=== PATIENT | male | born 1990 | race African-American/Black ===

== ENCOUNTER 2024-05-25 08:55 | Outpatient (REF) | payer MEDICAID, SELFPAY ==
--- NOTE | ~2024-05-25 | XR_ITS ---
EXAMINATION: XR CHEST CLINICAL INFORMATION: COUGH COMPARISON: None available. TECHNIQUE: 2 views of the chest were obtained. FINDINGS: No consolidation, pleural effusion or pneumothorax. No hyperinflation. Cardiomediastinal silhouette is normal in size. Osseous structures are intact. XR/XR chest 2V IMPRESSION: No acute airspace disease. Normal x-ray. Electronically signed by: Amaury Cabral MD 05/25/2024 11:01 AM [facility] [place]
--- NOTE | ~2024-05-25 | XR_ITS ---
EXAMINATION: XR LUMBOSACRAL SPINE CLINICAL INFORMATION: LOW BACK PAIN COMPARISON: None available. TECHNIQUE: Three views of the lumbosacral spine. FINDINGS: No acute cortical disruption or malalignment. No lytic or blastic lesions. XR/XR lumbar spine 2-3V IMPRESSION: No acute fracture or listhesis. Normal x-ray. If patient's symptoms persist recommend non-IV contrast MRI lumbar spine. Electronically signed by: Amaury Cabral MD 05/25/2024 11:00 AM [facility]
--- OUTSIDE RECORDS SUMMARY | 2024-05-25 09:19 | XMS_ITS | Encounter Summary ---
Author Organization [facility] Address [address] [place] [address] Phone Care Team Providers Care Quotation Clerk Name Role Phone Anderson Delgadillo Primary Care Provider [phone] Encounter Details Date Type Department Care Team (Late st Contact Info) Description 09/09/2009 Documentation EM Family Medicine [address] [place], [place] [phone] Family Medicine, Physician [address] [place], [place] [phone] Social History Tobacco Use Types Packs/Day Years Used Date Smoking Tobacco: Never Assessed Sex and Gender Information Value Date Recorded Sex Assigned at Not on file Legal Sex Male 4:25 PM EDT Gender Identity Not on file Sexual Orientation Not on file documented as of this encounter Plan of Treatment Not on file documented as of this encounter Visit Diagnoses Not on filedocumented in this encounter Care Teams Quotation Clerk Relationship Specialty Start Date End Date Anderson Delgadillo [address] [place] [address] PCP - General 11/30/16 documented as of this encounter
--- OUTSIDE RECORDS SUMMARY | 2024-05-25 09:19 | XMS_ITS | Clinical Summary ---
Author Organization [facility] Address [address] [place] [address] Care Team Providers Care Customer Service Voice Name Role Phone Pcp, No Primary Care Provider Unavailabl e Allergies No known active allergies Social History Tobacco Use Types Packs/Day Years Used Date Smoking Tobacco: Never Assessed Sex and Gender Information Value Date Recorded Sex Assigned at Not on file Gender Identity Not on file Sexual Orientation Not on file Last Filed Vital Signs Vital Sign Reading Time Taken Comments Blood Pressure 124/90 06/10/2019 9:50 AM EST Pulse 73 06/10/2019 9:50 AM EST Temperature 36.4 ??C (97.6 ??F) 06/10/2019 9:50 AM ES T Respiratory Rate 18 06/10/2019 9:50 AM EST Oxygen Saturation 96% 06/10/2019 9:50 AM EST Inhaled Oxygen Concentration - - Weight - - Height - - Body Mass Index - - Plan of Treatment Health Maintenance Due Date Last Done Comments Hepatitis C Virus Screening 1990 HIV Screening 2003 DTaP/Tdap/Td Vaccines (1 - Tdap) 2009 Hepatitis B Vaccines (1 of 3 - 19+ 3-dose series) 2009 Influenza Vaccine 11/21/2023 COVID-19 Vaccine (2023-2 5 season) 2023 HPV Vaccines Aged Out No longer eligi ble based on patient's age to complete this topic Pneumococcal Vaccine: Pediat naif (0-5 Years) and At-Risk Patients (6 to 49 Years) Aged Out No longer eligible b ased on patient's age to complete this topic Care Teams Customer Service Voice Relationship Specialty Start Date End Date Pcp, No PCP - General General Medicine 06/10/19
--- OUTSIDE RECORDS SUMMARY | 2024-05-25 09:19 | XMS_ITS | Clinical Summary ---
Author Organization [facility] Address [address] [place] [address] Phone Care Team Providers Care Registered Client Associate Name Role Phone Anderson Delgadillo Primary Care Provider [phone] Immunizations Name Administration Dates Next Due DTP 07/25/1994, 2,1990,06/25,1990 Hep B, ped/adol 10/07/2000,08/24/1999,07/25/1999 Hib (PRP-T) 05/15/1991, 1,1990,04/17 Influenza, injectable, trivalent 02/18/2008 MMR 07/25/1994,05/15/1991 Meningococcal Conj (Menactra) MCV4P 01/14/2007 OPV 07/25/1994, 1,1990,04/17 Td (adult) (MBL), 2 Lf tetan us toxoid, PF, adsorbed 11/17/2001 Tdap 01/14/2007 Varicella 02/18/2008,12/16/1997 Family History Relation Name Status Comments Brother 1 Alive Brother: Alive and well, Alive and well Brother 2 Alive Brother: Alive and well, Alive and well Maternal Grandmother Materna l grandmother: Diabetes mellitus, Obesity Mother Alive Mother: Obesity Sister Alive Sister: Alive a nd well Social History Tobacco Use Types Packs/Day Years Used Date Smoking Tobacco: Never Assessed Sex and Gender Information Value Date Recorded Sex Assigned at Not on file Legal Sex Male 4:25 PM EDT Gender Identity Not on file Sexual Orientation Not on file Plan of Treatment Health Maintenance Due Date Last Done Comments DTaP,Tdap,and Td Vaccines (7 - Td or Tdap) 01/14/2017 01/14/2007, 11/17/2001, 07/25/1994, Additional history exists Influenza Vaccines (#1) 2023 02/18/2008 COVID-19 Vaccine ( season) 2023 HIB Vaccines Completed 05/15/1991, 12/1990, 1990, Additional history exists IPV Vaccines Completed 07/25/1994, 12/1990, 1990, Additional history exists MMR Vaccines Completed 07/25/1994, 05/15/1991 Hepatitis B Vaccines Completed 10/07/2000, 08/24/1999, 07/25/1999 Meningococcal Vaccine Completed 01/14/2007 Varicella Vaccines Completed 02/18/2008, 12/16/1997 HPV Vaccines Aged Out No longer eligi ble based on patient's age to complete this topic Hepatitis A Vaccines Aged Out No long er eligible based on patient's age to complete this topic Men B Vaccine Aged Out No longer elig ible based on patient's age to complete this topic Pneumococcal Vaccine Aged Out No long er eligible based on patient's age to complete this topic Care Teams Registered Client Associate Relationship Specialty Start Date End Date Anderson Delgadillo [address] [place] [address] PCP - General 11/30/16
--- OUTSIDE RECORDS SUMMARY | 2024-05-25 09:19 | XMS_ITS | Encounter Summary ---
Author Organization [facility] Address [address] [place] [address] Phone Care Team Providers Care Bobbin Coil Winder Name Role Phone Anderson Delgadillo Primary Care Provider [phone] Encounter Details Date Type Department Care Team (Late st Contact Info) Description 12/06/2016 Conversion Encounter [facility] [address] [place] [address] Social History Tobacco Use Types Packs/Day Years [...] on filedocumented in this encounter Care Teams Bobbin Coil Winder Relationship Specialty Start Date End Date Anderson Delgadillo [address] [place] [address] PCP - General 11/30/16 documented as of this encounter
--- OUTSIDE RECORDS SUMMARY | 2024-05-25 09:19 | XMS_ITS | Clinical Summary ---
Author Organization [facility] ity Address [address] [place] [address] Care Team Providers Care Enrollment Processor Name Role Phone Unavailable Primary Care Provider Unavailabl e Social History Tobacco Use Types Packs/Day Years Used Date Smoking Tobacco: Never Assessed Sex and Gender Information Value Date Recorded Sex Assigned at Not on file Gender Identity Not on file Sexual Orientation Not on file Plan of Treatment Health Maintenance Due Date Last Done Comments DTaP,Tdap,and Td Vaccines (1 - Tdap) 2009 Hepatitis B Vaccines (1 of 3 - 19+ 3-dose series) 2009 Depression Screening 03/24/2022 HIV Screening 03/24/2022 Hepatitis C Screening 03/24/2022 Social Influencers of Health Screening 03/24/2022 COVID-19 Vaccine (1 - 2023-2 5 season) 2023 Influenza Vaccine (#1) 2023 HIB Vaccines Aged Out No longer eligi ble based on patient's age to complete this topic HPV Vaccines Aged Out No longer eligi ble based on patient's age to complete this topic Hepatitis A Vaccines Aged Out No long er eligible based on patient's age to complete this topic IPV Vaccines Aged Out No longer eligi ble based on patient's age to complete this topic MMR Vaccines Aged Out No longer eligi ble based on patient's age to complete this topic Meningococcal ACWY Vaccine Aged Out N o longer eligible based on patient's age to complete this topic Pneumococcal Vaccine: Pediat rics (0 to 5 Years) and At-Risk Patients (6 to 64 Years) Aged Out No longer eligible b ased on patient's age to complete this topic RSV Immunization Patients Un vicky 20 months Aged Out No longer eligible b ased on patient's age to complete this topic Varicella Vaccines Aged Out No longer eligible based on patient's age to complete this topic
[2024-05-25 11:11] LABS: Alanine Aminotransferase 39 U/L (0-40); Alkaline Phosphatase 76 U/L (39-117); Anion Gap 9 (12-20); Aspartate Amino Transferase 23 U/L (5-37); Bilirubin Total 0.4 mg/dL (0.0-1.0); Blood Urea Nitrogen 9 mg/dL (9-16); Calcium 8.8 mg/dL (8.4-10.2); Carbon Dioxide 28 mmol/L (22-29); Chloride 107 mmol/L (96-108); Cholesterol 151 mg/dL (<200); Estimated Glomerular Filt Rate > 60; Glucose Random 92 mg/dL (60-115); HDL Cholesterol 39 mg/dL (>40); LDL Cholesterol Calculated 96 mg/dL (<100); Potassium 4.3 mmol/L (3.3-5.1); Sodium 140 mmol/L (135-145); Total Protein 7.4 g/dL (6.5-8.0); Triglycerides 80 mg/dL (<150)
== END 2024-05-25 08:56 | disposition home or self-care (01) ==
LOC: HO.XRAY 08:55
PROVIDERS: PCP Internal Medicine; Visit Provider Internal Medicine
DX: R05.9 Cough, unspecified (principal); M54.50 Low back pain, unspecified; R06.09 Other forms of dyspnea; Z13.220 Encounter for screening for lipoid disorders
CPT/HCPCS: 36415; 71046; 72100; 80053; 80061

== ENCOUNTER → 2024-05-25 09:15 | Outpatient (BNV) | payer MEDICAID, SELFPAY | PROVIDERS: PCP Internal Medicine; Visit Provider Radiology Diagnostic Radiology | DX: R05.9 Cough, unspecified (principal); M54.50 Low back pain, unspecified | CPT/HCPCS: 71046; 72100 ==

== ENCOUNTER 2024-06-22 07:04 | Outpatient (REF) | payer MEDICAID, SELFPAY ==
--- NOTE | ~2024-06-22 | XR_ITS ---
CLINICAL HISTORY: ORBIT, PRE-MRI, HX OF METAL IN EYES MRI Screening XR PRE MRI SCREENING Comparison: None Findings: No acute fractures. Paranasal sinuses and mastoids are clear. No radiopaque foreign body. IMPRESSION: 1. No metallic foreign bodies in the orbits. This document has been electronically signed by: Carolann Paniagua MD on 06/22/2024 07:35:25
--- NOTE | ~2024-06-22 | MR_ITS ---
EXAMINATION: MR LUMBAR SPINE WITHOUT CONTRAST CLINICAL INFORMATION: Lumbago Sciatica COMPARISON: None available. TECHNIQUE: MRI of the lumbar spine was obtained using routine sequences without contrast. FINDINGS: Last rib-bearing vertebra labeled T12. No bone marrow STIR signal abnormality. Disc desiccation, L1 to and L5-S1 level. Focal hyperintense T2 STIR signal in the posterior intervertebral disc L5-S1. Conus medullaris ends at pedicle of L1 with normal signal. T12-L1: No disc herniation. No neuroforamina stenosis. L1-2: Right subarticular broad-based disc herniation resulting in ventral deformity of the thecal sac and right neural foramen narrowing encroaching the exiting nerve root. L2-3: Broad-based disc bulging. Facet joint hypertrophy. Bilateral neuroforamina narrowing. L3-4: Broad-based disc bulging. Facet joint hypertrophy. Bilateral neuroforamina narrowing likely encroaching the exiting nerve roots. L4-5: Broad-based disc bulging abutting the L5 nerve root on the lateral recesses. Facet joint hypertrophy. Bilateral neuroforamina narrowing likely encroaching the exiting nerve roots. L5-S1: Right subarticular and foraminal disc herniation encroaching the right S1 nerve root and to a lesser extent in the right neuroforamen stenosis encroaching the right L5 nerve root. No prevertebral compartment hematoma, mass or fluid collection. MR/MR lumbar spine wo con IMPRESSION: Right subarticular and foraminal disc herniation L5-S1 encroaching the right S1 nerve root and to a lesser extent right L5. Mild multilevel lumbar spondylosis from L2-3 to L4-5 encroaching the exiting nerve roots. Electronically signed by: Amaury Cabral MD 06/22/2024 09:39 AM EST
--- OUTSIDE RECORDS SUMMARY | 2024-06-22 07:06 | XMS_ITS | Encounter Summary ---
Author Organization [facility] Address [address] [place] [address] Phone Care Team Providers Care Stamp Clerk Name Role Phone Anderson Delgadillo Primary Care Provider [phone] Encounter Details Date Type Department Care Team (Late st Contact Info) Description 12/06/2016 Conversion Encounter [facility] [address] [place] [address] Social History Tobacco Use Types Packs/Day Years [...] on filedocumented in this encounter Care Teams Stamp Clerk Relationship Specialty Start Date End Date Anderson Delgadillo [address] [place] [address] PCP - General 11/30/16 documented as of this encounter
--- OUTSIDE RECORDS SUMMARY | 2024-06-22 07:06 | XMS_ITS | Clinical Summary ---
Author Organization [facility] Address [address] [place] [address] Phone Care Team Providers Care Classification And Treatment Director Name Role Phone Anderson Delgadillo Primary Care Provider [phone] Immunizations Immunization Administration Dates Next Due DTP 07/25/1994, 2,1990,06/25,1990 [...] age to complete this topic Care Teams Classification And Treatment Director Relationship Specialty Start Date End Date Anderson Delgadillo [address] [place] [address] PCP - General 11/30/16
--- OUTSIDE RECORDS SUMMARY | 2024-06-22 07:06 | XMS_ITS | Clinical Summary ---
Author Organization [facility] ity Address [address] [place] [address] Care Team Providers Care X Ray Equipment Servicer Name Role Phone Unavailable Primary Care Provider Unavailabl e Social History Tobacco Use Types Packs/Day Years Used Date Smoking Tobacco: Never Assessed Sex and Gender Information Value Date Recorded Sex Assigned at Not on file Legal Sex Male 7:14 PM EST Gender Identity Not on file Sexual Orientation Not on file Plan of Treatment Health Maintenance Due Date Last Done Comments DTaP,Tdap,and Td Vaccines (1 - Tdap) 2009 Hepatitis B Vaccines (1 of 3 - 19+ 3-dose series) 2009 Depression Screening 03/24/2022 HIV Screening 03/24/2022 Hepatitis C Screening 03/24/2022 Social Influencers of Health Screening 03/24/2022 COVID-19 Vaccine (2023-2 5 season) 2023 Influenza Vaccine (#1) 2023 [...] patient's age to complete this topic Meningococcal B Vacine Aged Out No lo nger eligible based on patient's age to complete [...]
--- OUTSIDE RECORDS SUMMARY | 2024-06-22 07:06 | XMS_ITS | Encounter Summary ---
Author Organization [facility] Address [address] [place] [address] Phone Care Team Providers Care Manager Adult Name Role Phone Anderson Delgadillo Primary Care Provider [phone] Encounter Details Date Type Department Care Team (Late st Contact Info) Description 09/09/2009 Documentation EM Family Medicine [address] [place], [place] [phone] Family Medicine, Physician [address] [place], [place] [phone] Social History Tobacco Use Types Packs/Day Years [...] on filedocumented in this encounter Care Teams Manager Adult Relationship Specialty Start Date End Date Anderson Delgadillo [address] [place] [address] PCP - General 11/30/16 documented as of this encounter
--- OUTSIDE RECORDS SUMMARY | 2024-06-22 07:06 | XMS_ITS | Clinical Summary ---
Author Organization [facility] Address [address] [place] [address] Care Team Providers Care Gas Welder Apprentice Name Role Phone Pcp, No Primary Care [...] age to complete this topic Care Teams Gas Welder Apprentice Relationship Specialty Start Date End Date Pcp, No PCP - General General Medicine 06/10/19
== END 2024-06-22 07:05 | disposition home or self-care (01) ==
LOC: HO.MRI 07:04
PROVIDERS: PCP Internal Medicine; Visit Provider Internal Medicine
DX: M51.17 Intervertebral disc disorders with radiculopathy, lumbosacral region (principal)
CPT/HCPCS: 72148

== ENCOUNTER → 2024-06-22 08:00 | Outpatient (BNV) | payer MEDICAID, SELFPAY | PROVIDERS: PCP Internal Medicine; Visit Provider Radiology Diagnostic Radiology | DX: M54.41 Lumbago with sciatica, right side (principal) | CPT/HCPCS: 72148 ==

== ENCOUNTER 2024-07-01 07:48 | Outpatient (REF) | payer MEDICAID, SELFPAY ==
--- NOTE | 2024-07-01 07:55 | PFT_ITS ---
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 MTDD
[2024-07-01 08:32] VITALS: PULSE 63
== END 2024-07-01 07:49 | disposition home or self-care (01) ==
LOC: HO.RESP 07:48
PROVIDERS: PCP Internal Medicine; Visit Provider Internal Medicine
DX: R06.09 Other forms of dyspnea (principal)
CPT/HCPCS: 94010; 94640; 94727; 94729

== ENCOUNTER → 2024-07-01 07:55 | Outpatient (BNV) | payer MEDICAID, SELFPAY | PROVIDERS: PCP Internal Medicine; Visit Provider Internal Medicine Pulmonary Disease | DX: R06.09 Other forms of dyspnea (principal) | CPT/HCPCS: 94060; 94727; 94729 ==

== ENCOUNTER 2024-07-20 08:57 | Outpatient (AMB) | payer MEDICAID, SELFPAY ==
--- NOTE | 2024-07-20 09:09 | HO.SPINEOV ---
Vital Signs 07/20/24 09:13 Height 5 ft 9 in Weight 263 lb BMI 38.8 Intake Visit Reasons: herniation of lumbar intervertebral disc Intake Note: Mr. Rodas is here today c/o Low back pain that radiates to the right leg causing stiffness. Cruise Coordinator Required: No Allergies No Known Allergies Allergy (Verified 07/20/24 09:14) Physical Exam Vital Signs: BMI result Body Mass Index 38.8 Assessment & Plan Assessment & Plan (1) Lumbar degenerative disc disease: Code(s): M51.369 - Other intervertebral disc degeneration, lumbar region without mention of lumbar back pain or lower extremity pain Category: Medical Plan Dear DR Horowitz, Thank you for referring Mr Rodas to our office today. This is a 34-year-old gentleman who has had on and off back pain centered around his mid lumbar region now for 4-5 years. He used to have jobs it required a lot of heavy lifting and often used to strain his back while he was doing it. He will also feel intermittently feelings of weakness in his right leg when he gets up to walk. No tingling numbness or shooting pain down the leg however. Through the years he has just kind of dealt with it without any specific dedicated conservative treatment. He came in to see us today with an MRI showing a small disc protrusion at L5-S1 on the right. PMH: History of a ACL repair, and surgery to repair in undescended testicle when he was very young Social hx: He does not smoke cigarettes, he does smoke marijuana daily, occasional alcohol Medications: Escitalopram Allergies: None Physical exam: Strength, reflexes and gait are normal Imaging review: Lumbar MRI done at [facility] shows normal alignment, no evidence of endplate degeneration, there some mild disc degeneration with a slight disc bulge on the right at L5-S1. Rest of the lumbar spine looks otherwise normal. Impression: 34-year-old male with chronic low back pain for 4-5 years with some mild disc degeneration. He also gets intermittent feelings of weakness in his right leg but no true radicular pain, tingling numbness or weakness. I showed him his MRI, explained to him using that what we are currently seeing on the MRIs is not anything that I would suspect would cause the degree of pain that he would be feeling on a daily basis. We also talked about the fact that in general, lumbar disc degeneration can often be seen incidentally in patients who are asymptomatic so there is no way to know for sure if this is at all involved in what is going on with his chronic back pain. There are many other parts of the spine that could be involved including joints, ligaments, muscle, fascia etc.. I urged him to start with physical therapy as a 1st step. We could consider going onto a pain management Center after that if these does not see any improvement. Thankfully however, does not look like he needs any surgery. Thank you for allowing us to care for your patient. The total time spent with this visit with this patient was 45 minutes reviewing history, physical exam, lumbar imaging review, and implementation of treatment plan or further diagnostic testing Peña Guajardo MD,PhD [facility] Orders: Orders PT Evaluation and Treatment Today M51.369 - Other intervertebral disc degeneration, lumbar region without mention of lumbar back pain or lower extremity pain Coding Level of Care Code New Pt Level 4 (75545) Diagnoses Lumbar degenerative disc disease M51.369
[2024-07-20 09:13] VITALS: BMI 38.8
== END 2024-07-20 09:45 | disposition home or self-care (01) ==
LOC: HO.HNS 08:58
PROVIDERS: PCP Internal Medicine; Referring Provider Internal Medicine; Visit Provider Physician Assistant
DX: M51.369 Other intervertebral disc degeneration, lumbar region without mention of lumbar back pain or lower extremity pain (principal)
CPT/HCPCS: 99204

== ENCOUNTER → 2024-07-20 08:57 | Outpatient (BNVA) | payer MEDICAID, SELFPAY | PROVIDERS: PCP Internal Medicine; Referring Provider Internal Medicine; Visit Provider Physician Assistant | DX: M51.369 Other intervertebral disc degeneration, lumbar region without mention of lumbar back pain or lower extremity pain (principal) | CPT/HCPCS: 99212 ==

== ENCOUNTER 2024-07-28 07:22 | Outpatient (REF) | payer MEDICAID, SELFPAY ==
--- NOTE | ~2024-07-28 | CT_ITS ---
EXAMINATION: CT SINUSES WITHOUT IV CONTRAST HISTORY: CHRONIC SINUSITIS TECHNIQUE: Serial 2 mm helically acquired images were obtained through the paranasal sinuses without IV contrast material. Sagittal and coronal reformatted images were also obtained. This CT exam was performed with one or more of the following dose reduction techniques: automated exposure control, adjustment of the mA and/or kV according to patient size, use of iterative reconstruction technique. DLP: 110 mGy-cm COMPARISON: There are no prior studies for comparison. FINDINGS: PARANASAL SINUSES: There is mild mucosal thickening in the bilateral maxillary sinuses. The bilateral frontal, ethmoid, and sphenoid sinuses are well-aerated and clear. No air/fluid levels are identified. The right ostiomeatal complex is occluded by mucosal thickening, and the left ostiomeatal complex is mildly narrowed by mucosal thickening. The mastoid air cells and middle ear cavities are well pneumatized bilaterally. BONES/JOINTS: There is no nasal septal deviation. No acute fractures are identified. INCLUDED ORBITS AND BRAIN: Unremarkable. The olfactory grooves appear within normal limits bilaterally. OTHER COMMENTS AND FINDINGS: None. CT/CT sinus wo IV con IMPRESSION: Mild mucosal thickening in the bilateral maxillary sinuses causing occlusion of the right ostiomeatal complex and narrowing of the left ostiomeatal complex. Otherwise unremarkable CT of the paranasal sinuses. Electronically signed by: Anderson Rodriguez MD 07/28/2024 08:19 AM EDT
--- OUTSIDE RECORDS SUMMARY | 2024-07-28 07:24 | XMS_ITS | Clinical Summary ---
Author Organization [facility] Address [address] [place] [address] Phone Care Team Providers Care Rn Oncology Research Name Role Phone Anderson Delgadillo Primary Care Provider [phone] Immunizations Immunization Administration Dates Next Due DTP [...] age to complete this topic Care Teams Rn Oncology Research Relationship Specialty Start Date End Date Anderson Delgadillo [address] [place] [address] PCP - General 11/30/16
--- OUTSIDE RECORDS SUMMARY | 2024-07-28 07:24 | XMS_ITS | Clinical Summary ---
Author Organization [facility] Address [address] [place] [address] Care Team Providers Care Receivable Executive Name Role Phone Pcp, No Primary Care [...] age to complete this topic Care Teams Receivable Executive Relationship Specialty Start Date End Date Pcp, No PCP - General General Medicine 06/10/19
--- OUTSIDE RECORDS SUMMARY | 2024-07-28 07:24 | XMS_ITS | Encounter Summary ---
Author Organization [facility] Address [address] [place] [address] Phone Care Team Providers Care Integrated Logistics Support Manager Name Role Phone Anderson Delgadillo Primary Care Provider [phone] Encounter Details Date Type Department Care Team (Late st Contact Info) Description 09/09/2009 Documentation EM Family Medicine [address] [place], [place] [phone] Family Medicine, Physician [address] [place], [place] [phone] Social History Tobacco Use Types Packs/Day Years [...] on filedocumented in this encounter Care Teams Integrated Logistics Support Manager Relationship Specialty Start Date End Date Anderson Delgadillo [address] [place] [address] PCP - General 11/30/16 documented as of this encounter
--- OUTSIDE RECORDS SUMMARY | 2024-07-28 07:24 | XMS_ITS | Clinical Summary ---
Author Organization [facility] ity Address [address] [place] [address] Care Team Providers Care All Source Intelligence Name Role Phone Unavailable Primary Care Provider [...] age to complete this topic Meningococcal B Vaccine Aged Out No l onger eligible based on patient's age to complete [...]
--- OUTSIDE RECORDS SUMMARY | 2024-07-28 07:24 | XMS_ITS | Encounter Summary ---
Author Organization [facility] Address [address] [place] [address] Phone Care Team Providers Care Assembler Truck Trailer Name Role Phone Anderson Delgadillo Primary Care Provider [phone] Encounter Details Date Type Department Care Team (Late st Contact Info) Description 12/06/2016 Conversion Encounter [facility] [address] [place] [address] Social History Tobacco Use Types Packs/Day Years [...] on filedocumented in this encounter Care Teams Assembler Truck Trailer Relationship Specialty Start Date End Date Anderson Delgadillo [address] [place] [address] PCP - General 11/30/16 documented as of this encounter
== END 2024-07-28 07:23 | disposition home or self-care (01) ==
LOC: HO.CT 07:22
PROVIDERS: PCP Internal Medicine; Visit Provider Internal Medicine
DX: J32.9 Chronic sinusitis, unspecified (principal)
CPT/HCPCS: 70486

== ENCOUNTER → 2024-07-28 07:24 | Outpatient (BNV) | payer MEDICAID, SELFPAY | PROVIDERS: PCP Internal Medicine; Visit Provider Radiology Diagnostic Radiology | DX: J32.9 Chronic sinusitis, unspecified (principal) | CPT/HCPCS: 70486 ==

== ENCOUNTER 2024-08-29 14:01 | Emergency (ER) | payer OTHER, SELFPAY ==
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
[2024-08-29 14:05] VITALS: BP 146/94; PULSE 69; O2SAT 98; BMI 40.2
[2024-08-29 14:07] VITALS: BP 136/80; PULSE 62; RESP 20; TEMP 36.8; O2SAT 98
--- OUTSIDE RECORDS SUMMARY | 2024-08-29 14:19 | XMS_ITS | Clinical Summary ---
Author Organization [facility] Address [address] [place] [address] Care Team Providers Care Lap Regulator Name Role Phone Pcp, No Primary Care Provider Unavailabl e Allergies No known active allergies Social History Tobacco Use Types Packs/Day Years Used Date Smoking Tobacco: Never Assessed Sex and Gender Information Value Date Recorded Sex Assigned at Not on file Legal Sex Male 4:46 AM EDT Gender Identity Not on file Sexual [...] of 3 - 19+ 3-dose series) 2009 COVID-19 Vaccine (2023-2 5 season) 2023 Influenza Vaccine 11/20/2024 HPV Vaccines Aged Out No longer eligi ble based on patient's age to complete this topic Pneumococcal Vaccine: Pediat naif (0-5 Years) and At-Risk Patients (6 to 49 Years) Aged Out No longer eligible b ased on patient's age to complete this topic Insurance [facility] MEDICARE [facility] (AUTO/LIABILITY) [place] [address] [place] [address] MEDIC[place] [facility] [employer] Care Teams Lap Regulator Relationship Specialty Start Date End Date Pcp, No PCP - General General Medicine 06/10/19
--- OUTSIDE RECORDS SUMMARY | 2024-08-29 14:19 | XMS_ITS | Encounter Summary ---
Author Organization [facility] Address [address] [place] [id number] Phone Care Team Providers Care Abrasives Sales Representative Name Role Phone Anderson Delgadillo Primary Care Provider [phone] Encounter Details Date Type Department Care Team (Late st Contact Info) Description 12/06/2016 Conversion Encounter [facility] [address] [place] [address] Social History Tobacco Use Types Packs/Day Years [...] on filedocumented in this encounter Care Teams Abrasives Sales Representative Relationship Specialty Start Date End Date Anderson Delgadillo [address] [place] [address] PCP - General 11/30/16 documented as of this encounter
--- OUTSIDE RECORDS SUMMARY | 2024-08-29 14:19 | XMS_ITS | Encounter Summary ---
Author Organization [facility] Address [address] [place] [phone] Phone Care Team Providers Care Lab Coordinator Name Role Phone Anderson Delgadillo Primary Care Provider [phone] Encounter Details Date Type Department Care Team (Late st Contact Info) Description 09/09/2009 Documentation EM Family Medicine [address] [place], [place] [id number] Family Medicine, Physician [address] [place], [place] [id number] Social History Tobacco Use Types Packs/Day Years [...] on filedocumented in this encounter Care Teams Lab Coordinator Relationship Specialty Start Date End Date Anderson Delgadillo [address] [place] [address] PCP - General 11/30/16 documented as of this encounter
--- OUTSIDE RECORDS SUMMARY | 2024-08-29 14:19 | XMS_ITS | Clinical Summary ---
Author Organization [facility] Address [address] [place] [address] Phone Care Team Providers Care Building Dismantler Name Role Phone Anderson Delgadillo Primary Care Provider [phone] Immunizations Immunization Administration Dates Next Due DTP [...] age to complete this topic Care Teams Building Dismantler Relationship Specialty Start Date End Date Anderson Delgadillo [address] [place] [id number] PCP - General 11/30/16
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
[2024-08-29 16:09] VITALS: BP 117/71; PULSE 59; RESP 18; TEMP 37.2; O2SAT 99
[2024-08-29 17:24] VITALS: BP 117/71; PULSE 59; RESP 18; TEMP 37.2; O2SAT 99
== END 2024-08-29 17:24 | disposition home or self-care (01) ==
PROVIDERS: Emergency Provider Emergency Medicine; PCP Internal Medicine; Referring Provider Physician Assistant
DX: S00.83XA Contusion of other part of head, initial encounter (principal); R51.9 Headache, unspecified; M54.2 Cervicalgia; M25.561 Pain in right knee; M54.50 Low back pain, unspecified; R07.89 Other chest pain; V43.52XA Car driver injured in collision with other type car in traffic accident, initial encounter; Y93.9 Activity, unspecified; Y92.410 Unspecified street and highway as the place of occurrence of the external cause; Y99.8 Other external cause status
CPT/HCPCS: 70450; 71046; 72125; 73562; 99283; 99284

== ENCOUNTER → 2024-08-29 15:09 | Outpatient (BNV) | payer MEDICAID, SELFPAY | PROVIDERS: Emergency Provider Emergency Medicine; PCP Internal Medicine; Visit Provider Radiology Diagnostic Radiology | DX: S19.9XXA Unspecified injury of neck, initial encounter (principal); S09.90XA Unspecified injury of head, initial encounter; S29.9XXA Unspecified injury of thorax, initial encounter; S80.911A Unspecified superficial injury of right knee, initial encounter | CPT/HCPCS: 70450; 71046; 72125; 73562 ==

== ENCOUNTER 2024-09-17 09:00 | Outpatient (RCR) | payer MEDICAID, SELFPAY ==
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
--- NOTE | 2024-10-06 13:59 | MHC.PT.DC ---
[facility] [place] Office [place] Office [place] Office [address] Jed Geronimo [address] [phone] F: [phone] F: [phone] F: [phone] F: [phone] Physical Therapy Discharge Report Diagnosis: BACK PAIN- Lumbar degenerative disc disease, small disc protrusion at L5-S1 on the right. Date of Surgery: Date of Evaluation: 08/27/24 Date of Discharge: 10/06/24 Treatments to Date: 3 Cancellations to Date: 7 No Shows to Date: 2 Discharge Status: Patient Elected to Stop Visit Non-compliance Discharge Summary: Zack was benefitting from PT intervention- at the last attended PT appt, he noted he had decr LBP. We initiated a progressive HEP -> He needed cues with squats to avoid compensatory valgus collapse and promoting neutral spine. Zack had poor attendance , we assisted him with hospital transportation, however, at this time, he is not able to attend scheduled PT sessions- a formal reassessment was not perf and he is discharged this date per the PT Dept attendance policy. Electronically signed by: Rianna Carnes,PT Please sign and return to therapist. Thank you for your referral.
== END 2024-10-06 14:05 | disposition home or self-care (01) ==
LOC: HO.PT 09:00
PROVIDERS: PCP Internal Medicine; Visit Provider Physician Assistant
DX: M51.369 Other intervertebral disc degeneration, lumbar region without mention of lumbar back pain or lower extremity pain (principal)
CPT/HCPCS: 97110; 97112; 97162; 97535